=== PATIENT | male | born 1970 | race Hispanic/Latino ===

== ENCOUNTER 2018-08-07 14:16 | Emergency (ER) | payer SELFPAY ==
--- NOTE | 2018-08-07 15:48 | RAD REPORT ---
EXAM DESCRIPTION: RAD - Shoulder Left 2 View - 08/07/2018 3:41 pm CLINICAL HISTORY: PAIN Left shoulder pain COMPARISON: No comparisons FINDINGS: AC joint degenerative changes are present with inferiorly projecting acromial osteophyte. No acute fracture or dislocation evident.
--- NOTE | 2018-08-07 16:00 | EDPHYS ---
Physician Documentation [facility] Name: Homer Rosenberg Age: 48 yrs Sex: Male : 1970 Arrival Date: 08/07/2018 Time: 14:19 Bed Treatment Private MD: ED Physician Ronald Almaguer HPI: 08/07 15:55 This 48 yrs old Male presents to ER via Ambulatory with complaints of Shoulder jr8 Injury. 15:55 The patient or guardian complains of decreased range of motion, pain. left shoulder. jr8 Onset: The symptoms/episode began/occurred acutely, yesterday. Modifying factors: the symptoms are alleviated by nothing. The symptoms are aggravated by movement. Associated signs and symptoms: The patient has no apparent associated signs or symptoms. Severity of symptoms: At their worst the symptoms were moderate, in the emergency department the symptoms are unchanged. The patient has not experienced similar symptoms in the past. The patient has not recently seen a physician. Patient stated that he had shoulder injury several years ago. Had been fine after it healed. Yesterday aggravated it when helping move furniture. Now having bad pain again with decreased ROM . Historical: - Allergies: 14:26 No Known Allergies; hj - Home Meds: 14:26 None [Active]; hj - PMHx: 14:26 None; hj - PSHx: 14:26 right kidney removal; hj - Immunization history:: Adult Immunizations up to date. - Social history:: Smoking status: Patient/guardian denies using tobacco, Patient/guardian denies using alcohol. - Ebola Screening: : Patient negative for fever greater than or equal to 101.5 degrees Fahrenheit, and additional compatible Ebola Virus Disease symptoms Patient denies exposure to infectious person Patient denies travel to an Ebola-affected area in the 21 days before illness onset. ROS: 15:55 Eyes: Negative for injury, pain, redness, and discharge, ENT: Negative for injury, jr8 pain, and discharge, Neck: Negative for injury, pain, and swelling, Cardiovascular: Negative for chest pain, palpitations, and edema, Respiratory: Negative for shortness of breath, cough, wheezing, and pleuritic chest pain, Abdomen/GI: Negative for abdominal pain, nausea, vomiting, diarrhea, and constipation, Back: Negative for injury and pain, Skin: Negative for injury, rash, and discoloration, Neuro: Negative for headache, weakness, numbness, tingling, and seizure. 15:55 MS/extremity: Positive for decreased range of motion, pain, tenderness, of the left shoulder. Exam: 15:55 Eyes: Pupils equal round and reactive to light, extra-ocular motions intact. Lids and jr8 lashes normal. Conjunctiva and sclera are non-icteric and not injected. Cornea within normal limits. Periorbital areas with no swelling, redness, or edema. ENT: Nares patent. No nasal discharge, no septal abnormalities noted. Tympanic membranes are normal and external auditory canals are clear. Oropharynx with no redness, swelling, or masses, exudates, or evidence of obstruction, uvula midline. Mucous membranes moist. Neck: Trachea midline, no thyromegaly or masses palpated, and no cervical lymphadenopathy. Supple, full range of motion without nuchal rigidity, or vertebral point tenderness. No Meningismus. Cardiovascular: Regular rate and rhythm with a normal S1 and S2. No gallops, murmurs, or rubs. Normal PMI, no JVD. No pulse deficits. Respiratory: Lungs have equal breath sounds bilaterally, clear to auscultation and percussion. No rales, rhonchi or wheezes noted. No increased work of breathing, no retractions or nasal flaring. Abdomen/GI: Soft, non-tender, with normal bowel sounds. No distension or tympany. No guarding or rebound. No evidence of tenderness throughout. Back: No spinal tenderness. No costovertebral tenderness. Full range of motion. Skin: Warm, dry with normal turgor. Normal color with no rashes, no lesions, and no evidence of cellulitis. Neuro: Awake and alert, GCS 15, oriented to person, place, time, and situation. Cranial nerves II-XII grossly intact. Motor strength 5/5 in all extremities. Sensory grossly intact. Cerebellar exam normal. Normal gait. 15:55 Musculoskeletal/extremity: Extremities: grossly normal except: noted in the left shoulder: decreased ROM, pain, tenderness, Circulation is intact in all extremities. Sensation intact. Patient able to extend arm forward but with pain. Has decreased ROM with abduction and posterior motion of shoulder on left side. . Vital Signs: 14:27 BP 142 / 81; Pulse 87; Resp 18; Temp 98.2(O); Pulse Ox 97% on R/A; Weight 102.06 kg; hj Height 5 ft. 9 in. (175.26 cm); Pain 4/10; 14:27 Body Mass Index 33.23 (102.06 kg, 175.26 cm) hj MDM: 14:52 Patient medically screened. jr8 15:55 Data reviewed: vital signs, nurses notes, radiologic studies, plain films, and as a jr8 result, I will discharge patient. Data interpreted: Pulse oximetry: on room air is 97 %. Interpretation: normal. Counseling: I had a detailed discussion with the patient and/or guardian regarding: the historical points, exam findings, and any diagnostic results supporting the discharge/admit diagnosis, radiology results, the need for outpatient follow up, a orthopedic surgeon, to return to the emergency department if symptoms worsen or persist or if there are any questions or concerns that arise at home. 08/07 15:05 Order name: XRAY Shoulder LEFT 2 view; Complete Time: 15:53 jl7 Administered Medications: No medications were administered Disposition: 18:21 Co-signature as Attending Physician, Ronald Almaguer MD. Disposition: 08/07/18 16:00 Discharged to Home. Impression: Pain in left shoulder. - Condition is Stable. - Discharge Instructions: Joint Pain, Shoulder Pain. - Prescriptions for Mobic 7.5 mg Oral Tablet - take 1 tablet by ORAL route once daily take with food; 20 tablet. Cyclobenzaprine 10 mg Oral Tablet - take 1 tablet by ORAL route every 8 hours As needed; 30 tablet. - Medication Reconciliation Form, Thank You Letter, Antibiotic Education, Prescription Opioid Use form. - Follow up: Pepito Anderson MD; When: 2 - 3 days; Reason: Recheck today's complaints, Continuance of care, Re-evaluation by your physician. - Problem is new. - Symptoms have improved. Signatures: Dispatcher [employer] EDMS Osmani Rodriguez PA PA jr8 Wilver Koehler RN RN la1 Kyle Mensah RN RN hj Starr, Gregory, MD MD gs Corrections: (The following items were deleted from the chart) 16:12 16:00 08/07/2018 16:00 Discharged to Home. Impression: Pain in left shoulder. Condition la1 is Stable. Forms are Medication Reconciliation Form, Thank You Letter, Antibiotic Education, Prescription Opioid Use. Follow up: Pepito Anderson; When: 2 - 3 days; Reason: Recheck today's complaints, Continuance of care, Re-evaluation by your physician. Problem is new. Symptoms have improved. jr8
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
== END 2018-08-07 16:12 | disposition home or self-care (01) ==
LOC: ER 14:16
DX: M25.512 Pain in left shoulder (principal)
CPT/HCPCS: 99283

== ENCOUNTER 2025-04-01 09:12 | Emergency (ER) | payer OTHER, SELFPAY ==
[2025-04-01] MEDS ORDERED: DIAZEPAM 5 MG TABLET ONE (09:38)
[2025-04-01] MEDS ORDERED: HYDROCODONE/APAP 5/325 MG TAB ONE (09:38)
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
--- NOTE | 2025-04-01 11:09 | RAD REPORT ---
EXAMINATION: XR LEFT SHOULDER CLINICAL INDICATION: Male, 55 years old. PAIN TECHNIQUE: Multiple views of the left shoulder were obtained. COMPARISON: 08/07/2018 FINDINGS: Mild offset of the AC joint may be chronic or represent grade 1 separation. Suggest correla tion with clinical point tenderness in the region. High riding humeral head noted likely indicating underlying rotator cuff pathology. No acute fracture or dislocation evident.
[2025-04-01 11:55] VITALS: TEMP 99.2
[2025-04-01 11:56] VITALS: BP 137/85; O2SAT 99
== END 2025-04-01 11:45 | disposition home or self-care (01) ==
LOC: ER 09:12
DX: S32.010A Wedge compression fracture of first lumbar vertebra, initial encounter for closed fracture (principal)
CPT/HCPCS: 72131; 99283